=== PATIENT | female | born 1945 | race Caucasian/White ===

== ENCOUNTER 2019-02-06 21:34 | Emergency (ER) | payer MEDICARE, OTHER ==
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
[2019-02-07 03:31] VITALS: BP 140/90
== END 2019-02-07 00:45 | disposition home or self-care (01) ==
LOC: MW.ED 21:34
DX: S00.531A Contusion of lip, initial encounter (principal); K08.89 Other specified disorders of teeth and supporting structures; Y04.8XXA Assault by other bodily force, initial encounter
CPT/HCPCS: 70450; 70450-26; 72125; 72125-26; 73030-26-RT; 73030-RT; 99284-25

== ENCOUNTER 2019-06-07 16:01 | Observation (INO) | payer MEDICARE, OTHER ==
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
--- NOTE | 2019-06-07 17:14 | CR ---
INDICATION: Weak TECHNIQUE: Chest radiograph 1 view COMPARISON: None FINDINGS: Mediastinum: The mediastinum is normal in appearance. The heart silhouette is normal in size and morphology. Lung: Both lungs are unremarkable in appearance. No sign of pleural effusion seen. No pneumothorax is identified. IMPRESSION: 1. No acute cardiopulmonary disease is seen. Dictated by: Breezy Olvera MD @ 06/07/2019 17:13:05 (Electronically Signed)
[2019-06-07 17:37] LABS: CHLORIDE,CL 104 mmol/L (98-107); SODIUM,NA 138 mmol/L (136-145)
[2019-06-07] MEDS ORDERED: Ondansetron 4 MG Tab.DIS PO PRN (18:06)
[2019-06-07] MEDS ORDERED: Ketorolac 30 MG/ML SDV IV PRN (18:06)
[2019-06-07] MEDS ORDERED: Bisacodyl 5 MG Tab PO PRN (18:06)
[2019-06-07] MEDS ORDERED: Morphine 10 MG/ML Syringe IVPUSH PRN (18:06)
[2019-06-07] MEDS ORDERED: Temazepam 15 MG Cap PO PRN (18:06)
[2019-06-07] MEDS ORDERED: Ondansetron 4 MG/2 ML SDV IVPUSH PRN (18:06)
[2019-06-07] MEDS ORDERED: Acetaminophen 325 MG Tab PO PRN (18:06)
[2019-06-07] MEDS ORDERED: Ibuprofen 800 MG Tab PO PRN (18:06)
[2019-06-07] MEDS ORDERED: Docusate Sodium 100 MG Cap PO PRN (18:06)
[2019-06-07] MEDS ORDERED: Nitroglycerin 0.4 MG Tab.SL SL PRN (18:14)
[2019-06-07] MEDS ORDERED: Enoxaparin 40 MG/0.4 ML Syringe SUBCUT SCH (18:15)
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
[2019-06-07 19:23] LABS: HEMOGLOBIN A1C 5.2 % (4.5-6.2)
[2019-06-08 06:47] LABS: CHLORIDE,CL 112 mmol/L (98-107); SODIUM,NA 145 mmol/L (136-145)
--- NOTE | 2019-06-08 08:15 | PCM.DCSUM1 ---
<Richard Weston - Last Filed: 06/08/19 17:45> Discharge Summary - Hospital Course Free Text/Narrative:: 73 y/o female who presented to the ER complaining of generalized weakness and chest pain. EKG showing global ST depression. Compared to previous EKG in 2016 which showed the same. Initial troponin was negative. Admitted for chest pain, ACS rule out. Serial troponins were negative. Patient's lipase was trending down from 400 down to mid 300's. Denies any alcohol intake or history of pancreatitis. Echo was ordered which results were pending. MRCP was unremarkable. No pancreatic masses. Feeling better, denying chest pain. She will need to follow-up with cardiology and PCP. - Discharge Data Discharge Date: 06/08/19 Discharge Disposition: Home, Self-Care 01 Condition: Good - Patient Instructions Diet: Regular Diet as Tolerated, Drink 8-10+ Glasses/Day Activity: As Tolerated Notify Provider of: Fever, Increased Pain, Swelling and Redness, Nausea and/or Vomiting - Discharge Plan *PRESCRIPTION DRUG MONITORING PROGRAM REVIEWED*: Not Applicable *COPY OF PRESCRIPTION DRUG MONITORING REPORT IN PATIENT MIRTA: Not Applicable Home Medications: Home Meds . [No Known Home Meds] 02/06/19 [History] Patient Handouts: Fatigue, Nonspecific Chest Pain, [id number] Referrals: Deo Moncada MD [Ordering Only Provider] - 06/15/19 8:00 am - Discharge Summary/Plan Comment DC Time >30 min.: No - Patient Data Vitals - Most Recent: Last Vital Signs Temp 35.8 C 06/08/19 04:00 Pulse 45 L 06/08/19 04:00 Resp 12 06/08/19 04:00 BP 108/52 L 06/08/19 04:00 Pulse Ox 95 06/08/19 04:00 Weight - Most Recent: 60.328 kg I&O - Last 24 hours: Intake & Output 06/07/19 06/08/19 06/08/19 22:59 06:59 14:59 Intake Total 220 Output Total 400 Balance -180 Lab Results - Last 24 hrs: Laboratory Results - last 24 hr 06/07/19 06/07/19 06/07/19 Range/Units 16:28 16:28 16:28 WBC 7.07 (4.0-11.0) K/uL RBC 4.17 L (4.30-5.90) M/uL Hgb 13.5 (12.0-16.0) g/dL Hct 38.7 (36.0-46.0) % MCV 92.8 (80.0-98.0) fL MCH 32.4 H (27.0-32.0) pg MCHC 34.9 (31.0-37.0) g/dL RDW Std Deviation 43.6 (28.0-62.0) fl RDW Coeff of Alexandra 13 (11.0-15.0) % Plt Count 234 (150-400) K/uL MPV 9.60 (7.40-12.00) fL Neut % (Auto) 59.1 (48.0-80.0) % Lymph % (Auto) 31.4 (16.0-40.0) % [place] % (Auto) 6.6 (0.0-15.0) % Eos % (Auto) 2.5 (0.0-7.0) % Baso % (Auto) 0.4 (0.0-1.5) % Neut # (Auto) 4.2 (1.4-5.7) K/uL Lymph # (Auto) 2.2 (0.6-2.4) K/uL [place] # (Auto) 0.5 (0.0-0.8) K/uL Eos # (Auto) 0.2 (0.0-0.7) K/uL Baso # (Auto) 0.0 (0.0-0.1) K/uL Nucleated RBC % 0.0 /100WBC Nucleated RBCs # 0 K/uL Sodium 138 (136-145) mmol/L Potassium 3.9 (3.5-5.1) mmol/L Chloride 104 (98-107) mmol/L Carbon Dioxide 24.2 (21.0-32.0) mmol/L BUN 15 (7.0-18.0) mg/dL Creatinine 0.9 (0.6-1.0) mg/dL Est Cr Clr Drug Dosing 40.75 mL/min Estimated GFR (MDRD) > 60.0 ml/min Glucose 101 (74-106) mg/dL Hemoglobin A1c (4.5-6.2) % Calcium 9.6 (8.5-10.1) mg/dL Total Bilirubin 0.4 (0.2-1.0) mg/dL AST 20 (15-37) IU/L ALT 25 (14-63) IU/L Alkaline Phosphatase 70 (46-116) U/L Troponin I < 0.050 (0.000-0.056) ng/mL Total Protein 6.4 (6.4-8.2) g/dL Albumin 3.5 (3.4-5.0) g/dL Globulin 2.9 (2.6-4.0) g/dL Albumin/Globulin Ratio 1.2 (0.9-1.6) Triglycerides (0-200) mg/dL Cholesterol (50-200) mg/dL LDL Cholesterol, Calc (60-180) mg/dL VLDL Cholesterol (5-55) mg/dL HDL Cholesterol (40-60) mg/dL Cholesterol/HDL Ratio (3.3-6.0) Lipase 403 H (73-393) U/L TSH 3rd Generation 2.67 (0.36-3.74) uIU/mL Urine Color Urine Appearance Urine pH (5.0-8.0) Ur Specific [place] (1.001-1.035) Urine Protein (NEGATIVE) mg/dL Urine Glucose (UA) (NEGATIVE) mg/dL Urine Ketones (NEGATIVE) mg/dL Urine Occult Blood (NEGATIVE) Urine Nitrite (NEGATIVE) Urine Bilirubin (NEGATIVE) Urine Urobilinogen (<2.0) EU/dL Ur Leukocyte Esterase (NEGATIVE) 06/07/19 06/07/19 06/07/19 Range/Units 16:28 16:30 22:50 WBC (4.0-11.0) K/uL RBC (4.30-5.90) M/uL Hgb (12.0-16.0) g/dL Hct (36.0-46.0) % MCV (80.0-98.0) fL MCH (27.0-32.0) pg MCHC (31.0-37.0) g/dL RDW Std Deviation (28.0-62.0) fl RDW Coeff of Alexandra (11.0-15.0) % Plt Count (150-400) K/uL MPV (7.40-12.00) fL Neut % (Auto) (48.0-80.0) % Lymph % (Auto) (16.0-40.0) % [place] % (Auto) (0.0-15.0) % Eos % (Auto) (0.0-7.0) % Baso % (Auto) (0.0-1.5) % Neut # (Auto) (1.4-5.7) K/uL Lymph # (Auto) (0.6-2.4) K/uL [place] # (Auto) (0.0-0.8) K/uL Eos # (Auto) (0.0-0.7) K/uL Baso # (Auto) (0.0-0.1) K/uL Nucleated RBC % /100WBC Nucleated RBCs # K/uL Sodium (136-145) mmol/L Potassium (3.5-5.1) mmol/L Chloride (98-107) mmol/L Carbon Dioxide (21.0-32.0) mmol/L BUN (7.0-18.0) mg/dL Creatinine (0.6-1.0) mg/dL Est Cr Clr Drug Dosing mL/min Estimated GFR (MDRD) ml/min Glucose (74-106) mg/dL Hemoglobin A1c 5.2 (4.5-6.2) % Calcium (8.5-10.1) mg/dL Total Bilirubin (0.2-1.0) mg/dL AST (15-37) IU/L ALT (14-63) IU/L Alkaline Phosphatase (46-116) U/L Troponin I < 0.050 (0.000-0.056) ng/mL Total Protein (6.4-8.2) g/dL Albumin (3.4-5.0) g/dL Globulin (2.6-4.0) g/dL Albumin/Globulin Ratio (0.9-1.6) Triglycerides (0-200) mg/dL Cholesterol (50-200) mg/dL LDL Cholesterol, Calc (60-180) mg/dL VLDL Cholesterol (5-55) mg/dL HDL Cholesterol (40-60) mg/dL Cholesterol/HDL Ratio (3.3-6.0) Lipase (73-393) U/L TSH 3rd Generation (0.36-3.74) uIU/mL Urine Color YELLOW Urine Appearance CLEAR Urine pH 6.5 (5.0-8.0) Ur Specific [place] <= 1.005 (1.001-1.035) Urine Protein NEGATIVE (NEGATIVE) mg/dL Urine Glucose (UA) NEGATIVE (NEGATIVE) mg/dL Urine Ketones NEGATIVE (NEGATIVE) mg/dL Urine Occult Blood NEGATIVE (NEGATIVE) Urine Nitrite NEGATIVE (NEGATIVE) Urine Bilirubin NEGATIVE (NEGATIVE) Urine Urobilinogen 0.2 (<2.0) EU/dL Ur Leukocyte Esterase NEGATIVE (NEGATIVE) 06/08/19 06/08/19 06/08/19 Range/Units 05:50 05:50 05:50 WBC 4.57 (4.0-11.0) K/uL RBC 4.11 L (4.30-5.90) M/uL Hgb 13.2 (12.0-16.0) g/dL Hct 38.5 (36.0-46.0) % MCV 93.7 (80.0-98.0) fL MCH 32.1 H (27.0-32.0) pg MCHC 34.3 (31.0-37.0) g/dL RDW Std Deviation 44.9 (28.0-62.0) fl RDW Coeff of Alexandra 13 (11.0-15.0) % Plt Count 198 (150-400) K/uL MPV 9.90 (7.40-12.00) fL Neut % (Auto) (48.0-80.0) % Lymph % (Auto) (16.0-40.0) % [place] % (Auto) (0.0-15.0) % Eos % (Auto) (0.0-7.0) % Baso % (Auto) (0.0-1.5) % Neut # (Auto) (1.4-5.7) K/uL Lymph # (Auto) (0.6-2.4) K/uL [place] # (Auto) (0.0-0.8) K/uL Eos # (Auto) (0.0-0.7) K/uL Baso # (Auto) (0.0-0.1) K/uL Nucleated RBC % 0.0 /100WBC Nucleated RBCs # 0 K/uL Sodium 145 (136-145) mmol/L Potassium 3.9 (3.5-5.1) mmol/L Chloride 112 H (98-107) mmol/L Carbon Dioxide 23.8 (21.0-32.0) mmol/L BUN 16 (7.0-18.0) mg/dL Creatinine 0.9 (0.6-1.0) mg/dL Est Cr Clr Drug Dosing 50.56 mL/min Estimated GFR (MDRD) > 60.0 ml/min Glucose 89 (74-106) mg/dL Hemoglobin A1c (4.5-6.2) % Calcium 8.9 (8.5-10.1) mg/dL Total Bilirubin 0.4 (0.2-1.0) mg/dL AST 14 L (15-37) IU/L ALT 21 (14-63) IU/L Alkaline Phosphatase 60 (46-116) U/L Troponin I < 0.050 (0.000-0.056) ng/mL Total Protein 5.7 L (6.4-8.2) g/dL Albumin 3.1 L (3.4-5.0) g/dL Globulin 2.6 (2.6-4.0) g/dL Albumin/Globulin Ratio 1.2 (0.9-1.6) Triglycerides 109 (0-200) mg/dL Cholesterol 187 (50-200) mg/dL LDL Cholesterol, Calc 102 (60-180) mg/dL VLDL Cholesterol 21 (5-55) mg/dL HDL Cholesterol 63 H (40-60) mg/dL Cholesterol/HDL Ratio 3.0 L (3.3-6.0) Lipase 345 (73-393) U/L TSH 3rd Generation (0.36-3.74) uIU/mL Urine Color Urine Appearance Urine pH (5.0-8.0) Ur Specific [place] (1.001-1.035) Urine Protein (NEGATIVE) mg/dL Urine Glucose (UA) (NEGATIVE) mg/dL Urine Ketones (NEGATIVE) mg/dL Urine Occult Blood (NEGATIVE) Urine Nitrite (NEGATIVE) Urine Bilirubin (NEGATIVE) Urine Urobilinogen (<2.0) EU/dL Ur Leukocyte Esterase (NEGATIVE) Med Orders - Current: Current Medications Acetaminophen (Tylenol) 650 mg PO Q4H PRN PRN Reason: Pain (Mild 1-3)/fever Bisacodyl (Dulcolax) 5 mg PO DAILY PRN PRN Reason: Constipation Docusate Sodium (Colace) 100 mg PO BID PRN PRN Reason: Constipation Enoxaparin Sodium (Lovenox) 40 mg SUBCUT Q24H [facility] Last Admin: 06/07/19 18:30 Dose: 40 mg Ibuprofen (Motrin) 800 mg PO Q6H PRN PRN Reason: Pain (mild 1-3) Ketorolac Tromethamine (Toradol) 15 mg IV Q6H PRN PRN Reason: Pain (moderate 4-6) Morphine Sulfate (Morphine) 2 mg IVPUSH Q2H PRN PRN Reason: Pain (severe 7-10) Stop: 06/08/19 18:08 Nitroglycerin (Nitrostat) 0.4 mg SL Q5M PRN PRN Reason: Chest Pain Ondansetron HCl (Zofran Odt) 4 mg PO Q4H PRN PRN Reason: nausea, able to take PO Ondansetron HCl (Zofran) 4 mg IVPUSH Q4H PRN PRN Reason: Nausea Temazepam (Restoril) 15 mg PO BEDTIME PRN PRN Reason: Sleep <Case Rocha - Last Filed: 06/08/19 18:02> Discharge Summary - Hospital Course HPI Initial Comments: I have examined the patient independently of caregivers non medical, Dr. Jose MD. I have discussed the case with him. I have reviewed and agree with the examination and plan as outlined by him. Please see orders. MRCP normal. - Patient Data Vitals - Most Recent: Last Vital Signs Temp 35.8 C 06/08/19 16:00 Pulse 51 L 06/08/19 16:00 Resp 16 06/08/19 16:00 BP 112/58 L 06/08/19 16:00 Pulse Ox 98 06/08/19 16:00 I&O - Last 24 hours: Intake & Output 06/08/19 06/08/19 06/08/19 06:59 14:59 22:59 Intake Total 220 700 Output Total 400 500 Balance -180 200 Lab Results - Last 24 hrs: Laboratory Results - last 24 hr 06/07/19 06/07/19 06/07/19 Range/Units 16:28 16:28 22:50 WBC (4.0-11.0) K/uL RBC (4.30-5.90) M/uL Hgb (12.0-16.0) g/dL Hct (36.0-46.0) % MCV (80.0-98.0) fL MCH (27.0-32.0) pg MCHC (31.0-37.0) g/dL RDW Std Deviation (28.0-62.0) fl RDW Coeff of Alexandra (11.0-15.0) % Plt Count (150-400) K/uL MPV (7.40-12.00) fL Nucleated RBC % /100WBC Nucleated RBCs # K/uL Sodium (136-145) mmol/L Potassium (3.5-5.1) mmol/L Chloride (98-107) mmol/L Carbon Dioxide (21.0-32.0) mmol/L BUN (7.0-18.0) mg/dL Creatinine (0.6-1.0) mg/dL Est Cr Clr Drug Dosing mL/min Estimated GFR (MDRD) ml/min Glucose (74-106) mg/dL Hemoglobin A1c 5.2 (4.5-6.2) % Calcium (8.5-10.1) mg/dL Total Bilirubin (0.2-1.0) mg/dL AST (15-37) IU/L ALT (14-63) IU/L Alkaline Phosphatase (46-116) U/L Troponin I < 0.050 (0.000-0.056) ng/mL Total Protein (6.4-8.2) g/dL Albumin (3.4-5.0) g/dL Globulin (2.6-4.0) g/dL Albumin/Globulin Ratio (0.9-1.6) Triglycerides (0-200) mg/dL Cholesterol (50-200) mg/dL LDL Cholesterol, Calc (60-180) mg/dL VLDL Cholesterol (5-55) mg/dL HDL Cholesterol (40-60) mg/dL Cholesterol/HDL Ratio (3.3-6.0) Lipase (73-393) U/L Vitamin B12 (193-986) pg/mL Folate (8.60-58.90) ng/mL TSH 3rd Generation 2.67 (0.36-3.74) uIU/mL 06/08/19 06/08/19 06/08/19 Range/Units 05:50 05:50 05:50 WBC 4.57 (4.0-11.0) K/uL RBC 4.11 L (4.30-5.90) M/uL Hgb 13.2 (12.0-16.0) g/dL Hct 38.5 (36.0-46.0) % MCV 93.7 (80.0-98.0) fL MCH 32.1 H (27.0-32.0) pg MCHC 34.3 (31.0-37.0) g/dL RDW Std Deviation 44.9 (28.0-62.0) fl RDW Coeff of Alexandra 13 (11.0-15.0) % Plt Count 198 (150-400) K/uL MPV 9.90 (7.40-12.00) fL Nucleated RBC % 0.0 /100WBC Nucleated RBCs # 0 K/uL Sodium 145 (136-145) mmol/L Potassium 3.9 (3.5-5.1) mmol/L Chloride 112 H (98-107) mmol/L Carbon Dioxide 23.8 (21.0-32.0) mmol/L BUN 16 (7.0-18.0) mg/dL Creatinine 0.9 (0.6-1.0) mg/dL Est Cr Clr Drug Dosing 50.56 mL/min Estimated GFR (MDRD) > 60.0 ml/min Glucose 89 (74-106) mg/dL Hemoglobin A1c (4.5-6.2) % Calcium 8.9 (8.5-10.1) mg/dL Total Bilirubin 0.4 (0.2-1.0) mg/dL AST 14 L (15-37) IU/L ALT 21 (14-63) IU/L Alkaline Phosphatase 60 (46-116) U/L Troponin I < 0.050 (0.000-0.056) ng/mL Total Protein 5.7 L (6.4-8.2) g/dL Albumin 3.1 L (3.4-5.0) g/dL Globulin 2.6 (2.6-4.0) g/dL Albumin/Globulin Ratio 1.2 (0.9-1.6) Triglycerides 109 (0-200) mg/dL Cholesterol 187 (50-200) mg/dL LDL Cholesterol, Calc 102 (60-180) mg/dL VLDL Cholesterol 21 (5-55) mg/dL HDL Cholesterol 63 H (40-60) mg/dL Cholesterol/HDL Ratio 3.0 L (3.3-6.0) Lipase 345 (73-393) U/L Vitamin B12 (193-986) pg/mL Folate (8.60-58.90) ng/mL TSH 3rd Generation (0.36-3.74) uIU/mL 06/08/19 Range/Units 05:50 WBC (4.0-11.0) K/uL RBC (4.30-5.90) M/uL Hgb (12.0-16.0) g/dL Hct (36.0-46.0) % MCV (80.0-98.0) fL MCH (27.0-32.0) pg MCHC (31.0-37.0) g/dL RDW Std Deviation (28.0-62.0) fl RDW Coeff of Alexandra (11.0-15.0) % Plt Count (150-400) K/uL MPV (7.40-12.00) fL Nucleated RBC % /100WBC Nucleated RBCs # K/uL Sodium (136-145) mmol/L Potassium (3.5-5.1) mmol/L Chloride (98-107) mmol/L Carbon Dioxide (21.0-32.0) mmol/L BUN (7.0-18.0) mg/dL Creatinine (0.6-1.0) mg/dL Est Cr Clr Drug Dosing mL/min Estimated GFR (MDRD) ml/min Glucose (74-106) mg/dL Hemoglobin A1c (4.5-6.2) % Calcium (8.5-10.1) mg/dL Total Bilirubin (0.2-1.0) mg/dL AST (15-37) IU/L ALT (14-63) IU/L Alkaline Phosphatase (46-116) U/L Troponin I (0.000-0.056) ng/mL Total Protein (6.4-8.2) g/dL Albumin (3.4-5.0) g/dL Globulin (2.6-4.0) g/dL Albumin/Globulin Ratio (0.9-1.6) Triglycerides (0-200) mg/dL Cholesterol (50-200) mg/dL LDL Cholesterol, Calc (60-180) mg/dL VLDL Cholesterol (5-55) mg/dL HDL Cholesterol (40-60) mg/dL Cholesterol/HDL Ratio (3.3-6.0) Lipase (73-393) U/L Vitamin B12 1496 H (193-986) pg/mL Folate 10.40 (8.60-58.90) ng/mL TSH 3rd Generation (0.36-3.74) uIU/mL Med Orders - Current: Current Medications Acetaminophen (Tylenol) 650 mg PO Q4H PRN PRN Reason: Pain (Mild 1-3)/fever Bisacodyl (Dulcolax) 5 mg PO DAILY PRN PRN Reason: Constipation Docusate Sodium (Colace) 100 mg PO BID PRN PRN Reason: Constipation Enoxaparin Sodium (Lovenox) 40 mg SUBCUT Q24H [facility] Last Admin: 06/07/19 18:30 Dose: 40 mg Ibuprofen (Motrin) 800 mg PO Q6H PRN PRN Reason: Pain (mild 1-3) Ketorolac Tromethamine (Toradol) 15 mg IV Q6H PRN PRN Reason: Pain (moderate 4-6) Morphine Sulfate (Morphine) 2 mg IVPUSH Q2H PRN PRN Reason: Pain (severe 7-10) Stop: 06/08/19 18:08 Nitroglycerin (Nitrostat) 0.4 mg SL Q5M PRN PRN Reason: Chest Pain Ondansetron HCl (Zofran Odt) 4 mg PO Q4H PRN PRN Reason: nausea, able to take PO Ondansetron HCl (Zofran) 4 mg IVPUSH Q4H PRN PRN Reason: Nausea Temazepam (Restoril) 15 mg PO BEDTIME PRN PRN Reason: Sleep Discontinued Medications Gadobenate Dimeglumine (Multihance) 11 ml IVPUSH ONETIME STA Stop: 06/08/19 14:11 Last Admin: 06/08/19 14:12 Dose: 11 ml Lorazepam (Ativan) 1 mg IVPUSH ONETIME ONE Stop: 06/08/19 13:39
[2019-06-08] MEDS ORDERED: LORazepam 2 MG/ML SDV IVPUSH ONE (13:38)
[2019-06-08] MEDS ORDERED: Gadobenate Dimeglumine 529 MG/ML 20 ML SDV IVPUSH STA (14:10)
--- NOTE | 2019-06-08 15:18 | MR ---
INDICATION: Pancreatitis. TECHNIQUE: Abdominal MRI with T1 in- and out of phase, T2, diffusion weighted, and progressively delayed post-contrast images. Intravenous gadolinium administered. Heavily T2 weighted 2D and 3D MRCP images also performed. FINDINGS: No fatty infiltration of the liver. 5 mm probable cyst in segment 7 of the liver. No other focal abnormalities identified in the visualized portions of the liver, spleen, pancreas, adrenal glands, and kidneys. No hydronephrosis. No intra or extrahepatic bile duct dilation with the common bile duct measuring 4 mm. No filling defects in the biliary system. Normal size of the main pancreatic duct. IMPRESSION: No bile duct dilation. No choledocholithiasis. Normal size of the main pancreatic duct. Dictated by Subhash Altamirano MD @ 06/08/2019 3:17:57 PM Dictated by: Subhash Altamirano MD @ 06/08/2019 15:18:05 (Electronically Signed)
[2019-06-08 17:04] VITALS: BP 112/58
--- NOTE | 2019-06-12 16:52 | ECHO ---
The echocardiogram report can be seen in this patient's EMR (Electronic Medical Record) in the Reports section. The echocardiogram report has also been scanned into PACS and can be seen there as well. RAHEEM
== END 2019-06-08 17:25 | disposition home or self-care (01) ==
LOC: MW.ED 16:01 → MW.MS 18:11
PROVIDERS: ADMIT Internal Medicine; ATTEND Internal Medicine
DX: R07.89 Other chest pain (principal); R53.1 Weakness; R74.8 Abnormal levels of other serum enzymes; Z82.49 Family history of ischemic heart disease and other diseases of the circulatory system
CPT/HCPCS: 36415; 71045; 74183; 80053; 80061; 81003; 82607; 82746; 83036; 83690; 84443; 84484; 85025; 85027; 93005; 93306; 96372; 96374; 99285; A9577; G0378; J1650; J2060

== ENCOUNTER 2019-12-21 19:38 | Emergency (ER) | payer MEDICARE, OTHER ==
[2019-12-21] MEDS ORDERED: Sulfamethoxazole/Trimethoprim 800-160 MG Tab PO ONE (20:26)
[2019-12-21] MEDS ORDERED: Phenazopyridine 200 MG Tab PO ONE (20:27)
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
[2019-12-21 20:41] VITALS: BP 130/60; PULSE 62
== END 2019-12-21 20:58 | disposition home or self-care (01) ==
LOC: MW.ED 19:38
DX: B34.9 Viral infection, unspecified (principal); R30.0 Dysuria
CPT/HCPCS: 99283; A9270

== ENCOUNTER 2020-05-29 22:46 | Emergency (ER) | payer MEDICARE, OTHER ==
[2020-05-29] MEDS ORDERED: Ibuprofen 600 MG Tab PO ONE (23:08)
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
--- NOTE | 2020-05-29 23:44 | CR ---
Indication: Injury Technique: Three views of the left 2nd digit Comparison: None available Findings: Bones: A nondisplaced fracture at the tuft of the 2nd distal phalanx. No dislocation. Ovoid lucencies at the base of the 1st metacarpal, probably degenerative subcortical cysts. Joint spaces: Mild degenerative changes at the 1st carpometacarpal joint and narrowing of the lateral mid carpal joint space. Soft tissues: Soft tissue swelling in the distal 2nd digit. A tiny calcification dorsal to the distal aspect of the 2nd proximal phalanx, nonspecific. Impression: A fracture of the 2nd distal phalanx. Dictated by Anil Muir MD @ 05/29/2020 11:42:48 PM Dictated by: Anil Muir MD @ 05/29/2020 23:43:56 (Electronically Signed)
[2020-05-30 03:10] VITALS: BP 149/56; PULSE 45
== END 2020-05-30 00:16 | disposition home or self-care (01) ==
LOC: MW.ED 22:46
DX: S62.661A Nondisplaced fracture of distal phalanx of left index finger, initial encounter for closed fracture (principal); W23.0XXA Caught, crushed, jammed, or pinched between moving objects, initial encounter
CPT/HCPCS: 73140; 99283; A9270

== ENCOUNTER 2022-01-17 19:52 | Emergency (ER) | payer MEDICARE, OTHER ==
[2022-01-17] MEDS ORDERED: ClonazePAM 0.5 MG Tab PO ONE ×2 (20:35→20:36)
[2022-01-17] MEDS ORDERED: LORazepam 0.5 MG Tab PO ONE (21:28)
[2022-01-17 22:19] VITALS: BP 131/68; PULSE 84
== END 2022-01-17 21:36 | disposition home or self-care (01) ==
LOC: MW.ED 19:52
DX: F41.9 Anxiety disorder, unspecified (principal); Z76.0 Encounter for issue of repeat prescription
CPT/HCPCS: 99283; A9270; 99281

== ENCOUNTER 2023-04-03 18:06 | Emergency (ER) | payer MEDICARE, OTHER ==
[2023-04-03 21:01] VITALS: BP 125/78; PULSE 78
== END 2023-04-03 21:01 | disposition home or self-care (01) ==
LOC: MW.ED 18:06
DX: S93.401A Sprain of unspecified ligament of right ankle, initial encounter (principal); X50.1XXA Overexertion from prolonged static or awkward postures, initial encounter
CPT/HCPCS: 73590-26-RT; 73590-RT; 73610-26-RT; 73610-RT; 99283

== ENCOUNTER 2023-06-30 22:58 | Emergency (ER) | payer MEDICARE, OTHER ==
[2023-06-30] MEDS ORDERED: Ondansetron 4 MG/2 ML SDV IVPUSH ONE (23:37)
[2023-06-30] MEDS ORDERED: Sodium Chloride 0.9% 1,000 ML IV ONE (23:37)
[2023-06-30 23:54] LABS: BASOPHILS PERCENT AUTO 0.2 % (0.0-1.5); EOSINOPHILS PERCENT AUTO 0.5 % (0.0-7.0); HEMATOCRIT 34.6 % (36.0-46.0); HEMOGLOBIN 11.8 g/dL (12.0-16.0); LYMPHOCYTES ABSOLUTE AUTO 0.6 K/uL (0.6-2.4); LYMPHOCYTES PERCENT AUTO 9.2 % (16.0-40.0); MEAN CORPUSCULAR HEMOGLOBIN 31.4 pg (27.0-32.0); MEAN CORPUSCULAR HGB CONC 34.1 g/dL (31.0-37.0); MONOCYTES ABSOLUTE AUTO 0.6 K/uL (0.0-0.8); MONOCYTES PERCENT AUTO 9.5 % (0.0-15.0); NEUTROPHILS PERCENT AUTO 80.6 % (48.0-80.0); NRBC ABSOLUTE 0 K/uL; PLATELET COUNT,PLT 205 K/uL (150-400); RED BLOOD CELL COUNT 3.76 M/uL (4.30-5.90)
[2023-07-01 00:26] LABS: A/G RATIO 1.2 (0.9-1.6); ALBUMIN 3.6 g/dL (3.4-5.0); BILIRUBIN TOTAL 0.3 mg/dL (0.2-1.0); CALCIUM 8.4 mg/dL (8.5-10.1); CARBON DIOXIDE,CO2 23.5 mmol/L (21.0-32.0); CREATININE 1.1 mg/dL (0.6-1.0); EST CRCL DRUG DOSING (CG) 31.29 mL/min; MAGNESIUM 1.6 mg/dL (1.8-2.4); POTASSIUM,K 3.8 mmol/L (3.5-5.1); PROTEIN TOTAL,TP 6.7 g/dL (6.4-8.2)
[2023-07-01] MEDS ORDERED: Acetaminophen 500 MG Tab PO ONE (00:38)
[2023-07-01 00:53] LABS: APPEARANCE,URINE CLEAR; BILIRUBIN,URINE NEGATIVE (NEGATIVE); COLOR,URINE YELLOW; GLUCOSE,URINE NEGATIVE (NEGATIVE); KETONES,URINE NEGATIVE (NEGATIVE); LEUKOCYTE ESTERASE,URINE NEGATIVE (NEGATIVE); NITRITE,URINE NEGATIVE (NEGATIVE); OCCULT BLOOD,URINE NEGATIVE (NEGATIVE); PROTEIN,URINE NEGATIVE (NEGATIVE); UROBILINOGEN,URINE 0.2 EU/dL (<2.0)
[2023-07-01 06:12] VITALS: BP 100/60; PULSE 66
== END 2023-07-01 06:10 | disposition home or self-care (01) ==
LOC: MW.ED 22:58
DX: U07.1 COVID-19 (principal); E86.0 Dehydration; R25.1 Tremor, unspecified
CPT/HCPCS: 36415; 80053; 81003; 83735; 84484; 85025; 96361; 96374; 96375; 99284; 99284-25; A9270-GY; J2405; J3360; J7030; U0002

== ENCOUNTER 2023-07-02 11:10 | Inpatient (IN) | payer MEDICARE, OTHER ==
[2023-07-02] MEDS ORDERED: Ondansetron 4 MG Tab.DIS PO ONE (11:37)
[2023-07-02 12:00] LABS: HEMOGLOBIN 11.3 g/dL (12.0-16.0); LYMPHOCYTES ABSOLUTE AUTO 0.5 K/uL (0.6-2.4); LYMPHOCYTES PERCENT AUTO 14.9 % (16.0-40.0); MEAN CORPUSCULAR HGB CONC 34.2 g/dL (31.0-37.0); MEAN CORPUSCULAR VOLUME 90.4 fL (80.0-98.0); MONOCYTES ABSOLUTE AUTO 0.3 K/uL (0.0-0.8); MONOCYTES PERCENT AUTO 9.2 % (0.0-15.0); NEUTROPHILS ABSOLUTE AUTO 2.6 K/uL (1.4-5.7); NEUTROPHILS PERCENT AUTO 75.9 % (48.0-80.0); NRBC ABSOLUTE 0 K/uL; PLATELET COUNT,PLT 129 K/uL (150-400); RED BLOOD CELL COUNT 3.65 M/uL (4.30-5.90); WHITE BLOOD CELL COUNT,WBC 3.36 K/uL (4.0-11.0)
[2023-07-02 12:27] LABS: A/G RATIO 1.2 (0.9-1.6); ALBUMIN 3.5 g/dL (3.4-5.0); BILIRUBIN TOTAL 0.5 mg/dL (0.2-1.0); CALCIUM 7.7 mg/dL (8.5-10.1); CARBON DIOXIDE,CO2 19.1 mmol/L (21.0-32.0); EST CRCL DRUG DOSING (CG) 34.42 mL/min; POTASSIUM,K 3.7 mmol/L (3.5-5.1); PROTEIN TOTAL,TP 6.3 g/dL (6.4-8.2)
[2023-07-02] MEDS ORDERED: Sodium Chloride 0.9% 1,000 ML IV ONE (12:40)
[2023-07-02] MEDS ORDERED: Sodium Chloride 0.9% 1,000 ML IV SCH (15:50)
[2023-07-02] MEDS ORDERED: Albuterol/Ipratropium 3.0-0.5 MG/3 ML Neb Soln NEB PRN (16:20)
[2023-07-02] MEDS ORDERED: REMDESIVIR 200 MG in Sodium Chloride 0.9% 250 ML IV ONE ×2 (17:00→18:30)
[2023-07-02 17:04] LABS: CALCIUM 7.7 mg/dL (8.5-10.1); CARBON DIOXIDE,CO2 20.9 mmol/L (21.0-32.0); CREATININE 0.9 mg/dL (0.6-1.0); EST CRCL DRUG DOSING (CG) 38.25 mL/min; POTASSIUM,K 3.8 mmol/L (3.5-5.1)
[2023-07-02] MEDS: cefTRIAXone 1 GM in Sodium Chloride 0.9% 50 ML IV SCH (17:05)
[2023-07-02] MEDS: Enoxaparin 40 MG/0.4 ML Syringe SUBCUT SCH (17:05)
[2023-07-02] MEDS: Azithromycin 500 MG in Sodium Chloride 0.9% 250 ML IV SCH (17:37)
[2023-07-02] MEDS ORDERED: Ondansetron 4 MG/2 ML SDV IVPUSH PRN (18:01)
[2023-07-02] MEDS: ClonazePAM 0.5 MG Tab PO PRN (22:04)
[2023-07-03 06:26] LABS: BASOPHILS PERCENT AUTO 0.1 % (0.0-1.5); HEMATOCRIT 34.3 % (36.0-46.0); HEMOGLOBIN 11.7 g/dL (12.0-16.0); LYMPHOCYTES ABSOLUTE AUTO 1.7 K/uL (0.6-2.4); LYMPHOCYTES PERCENT AUTO 23.4 % (16.0-40.0); MEAN CORPUSCULAR HEMOGLOBIN 30.9 pg (27.0-32.0); MEAN CORPUSCULAR HGB CONC 34.1 g/dL (31.0-37.0); MEAN CORPUSCULAR VOLUME 90.5 fL (80.0-98.0); MONOCYTES ABSOLUTE AUTO 0.4 K/uL (0.0-0.8); MONOCYTES PERCENT AUTO 6.2 % (0.0-15.0); NEUTROPHILS PERCENT AUTO 70.3 % (48.0-80.0); NRBC ABSOLUTE 0 K/uL; PLATELET COUNT,PLT 146 K/uL (150-400); RED BLOOD CELL COUNT 3.79 M/uL (4.30-5.90); WHITE BLOOD CELL COUNT,WBC 7.06 K/uL (4.0-11.0)
[2023-07-03 06:49] LABS: A/G RATIO 1.1 (0.9-1.6); BILIRUBIN TOTAL 0.2 mg/dL (0.2-1.0); CALCIUM 7.5 mg/dL (8.5-10.1); CARBON DIOXIDE,CO2 20.1 mmol/L (21.0-32.0); EST CRCL DRUG DOSING (CG) 34.42 mL/min; POTASSIUM,K 3.8 mmol/L (3.5-5.1); PROTEIN TOTAL,TP 5.8 g/dL (6.4-8.2)
[2023-07-03] MEDS: Polyethylene Glycol 3350 Powder 17 GM Packet PO SCH (08:28)
[2023-07-03] MEDS: Ondansetron 4 MG/2 ML SDV IVPUSH PRN (11:46)
[2023-07-03] MEDS: Acetaminophen 325 MG Tab PO PRN ×2 (11:50→22:50)
[2023-07-03] MEDS: cefTRIAXone 1 GM in Sodium Chloride 0.9% 50 ML IV SCH (16:29)
[2023-07-03] MEDS: Enoxaparin 40 MG/0.4 ML Syringe SUBCUT SCH (16:35)
[2023-07-03] MEDS ORDERED: REMDESIVIR 100 MG in Sodium Chloride 0.9% 100 ML IV SCH (17:00)
[2023-07-03] MEDS: Azithromycin 500 MG in Sodium Chloride 0.9% 250 ML IV SCH (17:29)
[2023-07-03] MEDS: REMDESIVIR 100 MG in Sodium Chloride 0.9% 100 ML IV SCH (19:59)
[2023-07-04 08:05] LABS: BASOPHILS PERCENT AUTO 0.3 % (0.0-1.5); EOSINOPHILS PERCENT AUTO 0.3 % (0.0-7.0); HEMATOCRIT 33.5 % (36.0-46.0); HEMOGLOBIN 11.3 g/dL (12.0-16.0); LYMPHOCYTES ABSOLUTE AUTO 1.4 K/uL (0.6-2.4); LYMPHOCYTES PERCENT AUTO 40.3 % (16.0-40.0); MEAN CORPUSCULAR HEMOGLOBIN 30.7 pg (27.0-32.0); MEAN CORPUSCULAR HGB CONC 33.7 g/dL (31.0-37.0); MONOCYTES ABSOLUTE AUTO 0.4 K/uL (0.0-0.8); MONOCYTES PERCENT AUTO 11.4 % (0.0-15.0); NEUTROPHILS ABSOLUTE AUTO 1.7 K/uL (1.4-5.7); NEUTROPHILS PERCENT AUTO 47.7 % (48.0-80.0); NRBC ABSOLUTE 0 K/uL; PLATELET COUNT,PLT 152 K/uL (150-400); RED BLOOD CELL COUNT 3.68 M/uL (4.30-5.90); WHITE BLOOD CELL COUNT,WBC 3.52 K/uL (4.0-11.0)
[2023-07-04 08:23] LABS: A/G RATIO 0.9 (0.9-1.6); ALBUMIN 2.5 g/dL (3.4-5.0); BILIRUBIN TOTAL 0.2 mg/dL (0.2-1.0); CALCIUM 7.6 mg/dL (8.5-10.1); CARBON DIOXIDE,CO2 24.5 mmol/L (21.0-32.0); CREATININE 0.8 mg/dL (0.6-1.0); EST CRCL DRUG DOSING (CG) 43.03 mL/min; POTASSIUM,K 3.8 mmol/L (3.5-5.1); PROTEIN TOTAL,TP 5.2 g/dL (6.4-8.2)
[2023-07-04] MEDS: Polyethylene Glycol 3350 Powder 17 GM Packet PO SCH (10:14)
[2023-07-04] MEDS: cefTRIAXone 1 GM in Sodium Chloride 0.9% 50 ML IV SCH (17:06)
[2023-07-04] MEDS: Azithromycin 500 MG in Sodium Chloride 0.9% 250 ML IV SCH (19:16)
[2023-07-04] MEDS: REMDESIVIR 100 MG in Sodium Chloride 0.9% 100 ML IV SCH (20:28)
[2023-07-04] MEDS: Apixaban 5 MG Tab PO SCH (20:50)
[2023-07-04] MEDS: Acetaminophen 325 MG Tab PO PRN (20:50)
[2023-07-05 06:11] LABS: BASOPHILS PERCENT AUTO 0.3 % (0.0-1.5); HEMATOCRIT 32.5 % (36.0-46.0); HEMOGLOBIN 10.9 g/dL (12.0-16.0); LYMPHOCYTES ABSOLUTE AUTO 1.4 K/uL (0.6-2.4); LYMPHOCYTES PERCENT AUTO 45.4 % (16.0-40.0); MEAN CORPUSCULAR HEMOGLOBIN 30.7 pg (27.0-32.0); MEAN CORPUSCULAR HGB CONC 33.5 g/dL (31.0-37.0); MEAN CORPUSCULAR VOLUME 91.5 fL (80.0-98.0); MONOCYTES ABSOLUTE AUTO 0.5 K/uL (0.0-0.8); MONOCYTES PERCENT AUTO 14.7 % (0.0-15.0); NEUTROPHILS ABSOLUTE AUTO 1.2 K/uL (1.4-5.7); NEUTROPHILS PERCENT AUTO 38.6 % (48.0-80.0); NRBC ABSOLUTE 0 K/uL; PLATELET COUNT,PLT 152 K/uL (150-400); RED BLOOD CELL COUNT 3.55 M/uL (4.30-5.90); WHITE BLOOD CELL COUNT,WBC 3.06 K/uL (4.0-11.0)
[2023-07-05 06:47] LABS: ALBUMIN 2.6 g/dL (3.4-5.0); BILIRUBIN TOTAL 0.2 mg/dL (0.2-1.0); CALCIUM 7.9 mg/dL (8.5-10.1); CREATININE 0.7 mg/dL (0.6-1.0); EST CRCL DRUG DOSING (CG) 49.18 mL/min; POTASSIUM,K 3.8 mmol/L (3.5-5.1); PROTEIN TOTAL,TP 5.2 g/dL (6.4-8.2)
[2023-07-05] MEDS: Polyethylene Glycol 3350 Powder 17 GM Packet PO SCH (08:18)
[2023-07-05] MEDS: Apixaban 5 MG Tab PO SCH ×2 (08:18→21:04)
[2023-07-05] MEDS: Pantoprazole 40 MG in Sodium Chloride 0.9% 10 ML IVPUSH SCH (12:00)
[2023-07-05] MEDS: cefTRIAXone 1 GM in Sodium Chloride 0.9% 50 ML IV SCH ×2 (15:16→16:43)
[2023-07-05] MEDS: Azithromycin 500 MG in Sodium Chloride 0.9% 250 ML IV SCH (16:44)
[2023-07-05] MEDS: REMDESIVIR 100 MG in Sodium Chloride 0.9% 100 ML IV SCH (18:19)
[2023-07-05] MEDS: ClonazePAM 0.5 MG Tab PO PRN (20:06)
[2023-07-06 06:03] LABS: EOSINOPHILS PERCENT AUTO 0.2 % (0.0-7.0); HEMATOCRIT 33.9 % (36.0-46.0); HEMOGLOBIN 11.6 g/dL (12.0-16.0); LYMPHOCYTES ABSOLUTE AUTO 1.2 K/uL (0.6-2.4); LYMPHOCYTES PERCENT AUTO 28.5 % (16.0-40.0); MEAN CORPUSCULAR HEMOGLOBIN 30.6 pg (27.0-32.0); MEAN CORPUSCULAR HGB CONC 34.2 g/dL (31.0-37.0); MEAN CORPUSCULAR VOLUME 89.4 fL (80.0-98.0); MONOCYTES ABSOLUTE AUTO 0.4 K/uL (0.0-0.8); NEUTROPHILS ABSOLUTE AUTO 2.6 K/uL (1.4-5.7); NEUTROPHILS PERCENT AUTO 61.3 % (48.0-80.0); NRBC ABSOLUTE 0 K/uL; PLATELET COUNT,PLT 182 K/uL (150-400); RED BLOOD CELL COUNT 3.79 M/uL (4.30-5.90); WHITE BLOOD CELL COUNT,WBC 4.21 K/uL (4.0-11.0)
[2023-07-06 06:47] LABS: ALBUMIN 2.7 g/dL (3.4-5.0); BILIRUBIN TOTAL 0.3 mg/dL (0.2-1.0); CALCIUM 8.2 mg/dL (8.5-10.1); CREATININE 0.7 mg/dL (0.6-1.0); EST CRCL DRUG DOSING (CG) 49.18 mL/min; POTASSIUM,K 3.7 mmol/L (3.5-5.1); PROTEIN TOTAL,TP 5.3 g/dL (6.4-8.2)
[2023-07-06] MEDS: Pantoprazole 40 MG in Sodium Chloride 0.9% 10 ML IVPUSH SCH (08:15)
[2023-07-06] MEDS: Apixaban 5 MG Tab PO SCH ×2 (08:15→20:27)
[2023-07-06] MEDS: Polyethylene Glycol 3350 Powder 17 GM Packet PO SCH (08:25)
[2023-07-06] MEDS: cefTRIAXone 1 GM in Sodium Chloride 0.9% 50 ML IV SCH (16:22)
[2023-07-06] MEDS: Azithromycin 500 MG in Sodium Chloride 0.9% 250 ML IV SCH (17:00)
[2023-07-06] MEDS: Ondansetron 4 MG/2 ML SDV IVPUSH PRN (18:39)
[2023-07-06] MEDS: REMDESIVIR 100 MG in Sodium Chloride 0.9% 100 ML IV SCH (18:42)
[2023-07-06] MEDS: ClonazePAM 0.5 MG Tab PO PRN (20:27)
[2023-07-07 06:23] LABS: BASOPHILS PERCENT AUTO 0.2 % (0.0-1.5); EOSINOPHILS PERCENT AUTO 0.2 % (0.0-7.0); HEMATOCRIT 34.4 % (36.0-46.0); LYMPHOCYTES ABSOLUTE AUTO 1.5 K/uL (0.6-2.4); LYMPHOCYTES PERCENT AUTO 28.3 % (16.0-40.0); MEAN CORPUSCULAR HGB CONC 34.9 g/dL (31.0-37.0); MEAN CORPUSCULAR VOLUME 88.9 fL (80.0-98.0); MONOCYTES ABSOLUTE AUTO 0.6 K/uL (0.0-0.8); MONOCYTES PERCENT AUTO 11.9 % (0.0-15.0); NEUTROPHILS PERCENT AUTO 59.4 % (48.0-80.0); NRBC ABSOLUTE 0 K/uL; PLATELET COUNT,PLT 202 K/uL (150-400); RED BLOOD CELL COUNT 3.87 M/uL (4.30-5.90); WHITE BLOOD CELL COUNT,WBC 5.12 K/uL (4.0-11.0)
[2023-07-07 06:48] LABS: ALBUMIN 2.6 g/dL (3.4-5.0); BILIRUBIN TOTAL 0.3 mg/dL (0.2-1.0); CALCIUM 8.2 mg/dL (8.5-10.1); CARBON DIOXIDE,CO2 25.3 mmol/L (21.0-32.0); CREATININE 0.8 mg/dL (0.6-1.0); EST CRCL DRUG DOSING (CG) 43.03 mL/min; POTASSIUM,K 3.6 mmol/L (3.5-5.1); PROTEIN TOTAL,TP 5.1 g/dL (6.4-8.2)
[2023-07-07] MEDS: Apixaban 5 MG Tab PO SCH ×2 (08:30→20:41)
[2023-07-07] MEDS: Pantoprazole 40 MG in Sodium Chloride 0.9% 10 ML IVPUSH SCH (08:30)
[2023-07-07] MEDS: Polyethylene Glycol 3350 Powder 17 GM Packet PO SCH (08:52)
[2023-07-07] MEDS: Acetaminophen 325 MG Tab PO PRN (20:43)
[2023-07-07] MEDS: ClonazePAM 0.5 MG Tab PO PRN (23:53)
[2023-07-08 06:19] LABS: BASOPHILS PERCENT AUTO 0.2 % (0.0-1.5); EOSINOPHILS ABSOLUTE AUTO 0.1 K/uL (0.0-0.7); EOSINOPHILS PERCENT AUTO 0.8 % (0.0-7.0); HEMOGLOBIN 11.7 g/dL (12.0-16.0); LYMPHOCYTES ABSOLUTE AUTO 1.9 K/uL (0.6-2.4); LYMPHOCYTES PERCENT AUTO 31.3 % (16.0-40.0); MEAN CORPUSCULAR HEMOGLOBIN 30.9 pg (27.0-32.0); MEAN CORPUSCULAR HGB CONC 34.4 g/dL (31.0-37.0); MEAN CORPUSCULAR VOLUME 89.7 fL (80.0-98.0); MONOCYTES ABSOLUTE AUTO 0.7 K/uL (0.0-0.8); MONOCYTES PERCENT AUTO 11.9 % (0.0-15.0); NEUTROPHILS ABSOLUTE AUTO 3.3 K/uL (1.4-5.7); NEUTROPHILS PERCENT AUTO 55.8 % (48.0-80.0); NRBC ABSOLUTE 0 K/uL; PLATELET COUNT,PLT 209 K/uL (150-400); RED BLOOD CELL COUNT 3.79 M/uL (4.30-5.90); WHITE BLOOD CELL COUNT,WBC 5.95 K/uL (4.0-11.0)
[2023-07-08 06:30] LABS: A/G RATIO 0.9 (0.9-1.6); ALBUMIN 2.5 g/dL (3.4-5.0); BILIRUBIN TOTAL 0.5 mg/dL (0.2-1.0); CALCIUM 7.6 mg/dL (8.5-10.1); CARBON DIOXIDE,CO2 24.4 mmol/L (21.0-32.0); CREATININE 0.6 mg/dL (0.6-1.0); EST CRCL DRUG DOSING (CG) 57.37 mL/min; POTASSIUM,K 4.2 mmol/L (3.5-5.1); PROTEIN TOTAL,TP 5.2 g/dL (6.4-8.2)
[2023-07-08] MEDS: Pantoprazole 40 MG in Sodium Chloride 0.9% 10 ML IVPUSH SCH (08:41)
[2023-07-08] MEDS: Polyethylene Glycol 3350 Powder 17 GM Packet PO SCH (08:42)
[2023-07-08] MEDS: Apixaban 5 MG Tab PO SCH (09:32)
[2023-07-08 12:27] VITALS: BP 127/63; PULSE 73
== END 2023-07-08 12:10 | disposition home or self-care (01) | DRG 178 ==
LOC: MW.ED 11:10 → MW.MS 12:58
PROVIDERS: ADMIT Internal Medicine; ATTEND Internal Medicine
PROC: XW033E5 Introduction of Remdesivir Anti-infective into Peripheral Vein, Percutaneous Approach, New Technology Group 5 (ICD-10-PCS; principal; 2023-07-02)
PROC: 8E0ZXY6 Isolation (ICD-10-PCS; 2023-07-02)
DX: U07.1 COVID-19 (principal); E87.1 Hypo-osmolality and hyponatremia; J98.11 Atelectasis; F43.10 Post-traumatic stress disorder, unspecified; E86.0 Dehydration; I34.0 Nonrheumatic mitral (valve) insufficiency; I48.91 Unspecified atrial fibrillation; M19.90 Unspecified osteoarthritis, unspecified site; F41.9 Anxiety disorder, unspecified; I44.7 Left bundle-branch block, unspecified; R09.89 Other specified symptoms and signs involving the circulatory and respiratory systems; Z79.01 Long term (current) use of anticoagulants; Z79.899 Other long term (current) drug therapy; Z86.010 Personal history of colon polyps; Z98.890 Other specified postprocedural states
CPT/HCPCS: 36415; 71045; 71045-26; 80048; 80053; 83605; 83690; 83880; 85025; 87040; 87045; 87046; 87324; 87449; 87899; 93005; 93306; 97161-GP; 99285; A9270-GY; C9113; J0248; J0456; J0696; J1650; J2405; J3490; J7030; J7050

== ENCOUNTER 2024-01-08 16:38 | Observation (INO) | payer MEDICARE, OTHER ==
[2024-01-08 17:08] LABS: APPEARANCE,URINE CLEAR; BILIRUBIN,URINE NEGATIVE (NEGATIVE); COLOR,URINE YELLOW; GLUCOSE,URINE NEGATIVE (NEGATIVE); KETONES,URINE NEGATIVE (NEGATIVE); LEUKOCYTE ESTERASE,URINE NEGATIVE (NEGATIVE); NITRITE,URINE NEGATIVE (NEGATIVE); OCCULT BLOOD,URINE NEGATIVE (NEGATIVE); PROTEIN,URINE NEGATIVE (NEGATIVE); UROBILINOGEN,URINE 0.2 EU/dL (<2.0)
[2024-01-08 17:14] LABS: BASOPHILS ABSOLUTE AUTO 0.02 K/uL (0.00-0.20); BASOPHILS PERCENT AUTO 0.3 % (0.0-1.0); EOSINOPHILS ABSOLUTE AUTO 0.09 K/uL (0.00-0.45); EOSINOPHILS PERCENT AUTO 1.3 % (0.0-6.0); HEMATOCRIT 38.3 % (37.0-47.0); HEMOGLOBIN 12.8 g/dL (12.0-16.0); IMMATURE GRAN ABSOLUTE AUTO 0.02 K/uL (0.00-0.05); IMMATURE GRAN PERCENT AUTO 0.3 % (0.0-0.4); LYMPHOCYTES ABSOLUTE AUTO 2.36 K/uL (1.00-4.80); LYMPHOCYTES PERCENT AUTO 34.3 % (24.0-44.0); MEAN CORPUSCULAR HEMOGLOBIN 31.7 pg (28.0-32.0); MEAN CORPUSCULAR HGB CONC 33.4 g/dL (32.0-36.0); MEAN CORPUSCULAR VOLUME 94.8 fL (83.0-99.0); MEAN PLATELET VOLUME 8.9 fL (9.4-12.3); MONOCYTES ABSOLUTE AUTO 0.52 K/uL (0.00-0.80); MONOCYTES PERCENT AUTO 7.5 % (0.0-8.0); NEUTROPHILS ABSOLUTE AUTO 3.88 K/uL (1.80-7.70); NEUTROPHILS PERCENT AUTO 56.3 % (41.0-71.0); PLATELET COUNT,PLT 202 K/uL (150-400); RED BLOOD CELL COUNT 4.04 M/uL (4.10-5.30); WHITE BLOOD CELL COUNT,WBC 6.89 K/uL (3.9-11.3)
[2024-01-08 17:31] LABS: INR 0.99 (0.86-1.11); PTT,PARTIAL THROMBOPLSTIN TIME 26.6 SEC (23.9-30.7)
[2024-01-08] MEDS: Sodium Chloride 0.9% 1,000 ML IV ONE (17:31)
[2024-01-08 17:46] LABS: A/G RATIO 1.1 (0.9-1.6); ALBUMIN 3.9 g/dL (3.4-5.0); BILIRUBIN TOTAL 0.4 mg/dL (0.2-1.0); CALCIUM 9.1 mg/dL (8.5-10.1); CARBON DIOXIDE,CO2 26.5 mmol/L (21.0-32.0); CREATININE 0.9 mg/dL (0.6-1.0); EST CRCL DRUG DOSING (CG) 37.62 mL/min; MAGNESIUM 2.1 mg/dL (1.8-2.4); PROTEIN TOTAL,TP 7.3 g/dL (6.4-8.2); TSH ULTRASENSITIVE 4.03 uIU/mL (0.36-3.74)
[2024-01-08 18:04] LABS: T4 FREE 1.04 ng/dL (0.76-1.46)
[2024-01-08] MEDS: Iopamidol 755 MG/ML 500 ML Multipack Bottle IVPUSH STA (19:00)
[2024-01-08] MEDS ORDERED: Polyethylene Glycol 3350 Powder 17 GM Packet PO PRN (20:50)
[2024-01-08] MEDS ORDERED: Acetaminophen 650 MG Supp RECTAL PRN (20:50)
[2024-01-08] MEDS ORDERED: Albuterol/Ipratropium 3.0-0.5 MG/3 ML Neb Soln NEB PRN (20:50)
[2024-01-08] MEDS ORDERED: Ondansetron 4 MG/2 ML SDV IVPUSH PRN (20:50)
[2024-01-08] MEDS: Enoxaparin 40 MG/0.4 ML Syringe SUBCUT SCH (21:31)
[2024-01-08] MEDS: Apixaban 5 MG Tab PO SCH (21:31)
[2024-01-08 21:41] LABS: AMPHETAMINES SCREEN, URINE NEGATIVE (CUTOFF=500); BARBITURATE SCREEN,URINE NEGATIVE (CUTOFF=200); BENZODIAZEPINES SCREEN,URINE NEGATIVE (CUTOFF=150); BUPRENORPHINE SCREEN,URINE NEGATIVE (CUTOFF=10); METHADONE SCREEN, URINE NEGATIVE (CUTOFF=200); METHAMPHETAMINES SCREEN, URINE NEGATIVE (CUTOFF=500); OXYCODONE SCREEN,URINE NEGATIVE (CUT0FF=100); PCP SCREEN,URINE NEGATIVE (CUTOFF=25); THC SCREEN,URINE 20 NG/ML NEGATIVE (CUTOFF=50)
[2024-01-08] MEDS: Rivaroxaban 15 MG Tab PO SCH (21:55)
[2024-01-08] MEDS: atorvaSTATin 40 MG Tab PO SCH (22:40)
[2024-01-09 06:03] LABS: BASOPHILS ABSOLUTE AUTO 0.03 K/uL (0.00-0.20); BASOPHILS PERCENT AUTO 0.6 % (0.0-1.0); EOSINOPHILS ABSOLUTE AUTO 0.07 K/uL (0.00-0.45); EOSINOPHILS PERCENT AUTO 1.3 % (0.0-6.0); HEMATOCRIT 33.8 % (37.0-47.0); HEMOGLOBIN 11.6 g/dL (12.0-16.0); IMMATURE GRAN ABSOLUTE AUTO 0.02 K/uL (0.00-0.05); IMMATURE GRAN PERCENT AUTO 0.4 % (0.0-0.4); LYMPHOCYTES ABSOLUTE AUTO 2.08 K/uL (1.00-4.80); LYMPHOCYTES PERCENT AUTO 39.8 % (24.0-44.0); MEAN CORPUSCULAR HEMOGLOBIN 32.2 pg (28.0-32.0); MEAN CORPUSCULAR HGB CONC 34.3 g/dL (32.0-36.0); MEAN CORPUSCULAR VOLUME 93.9 fL (83.0-99.0); MEAN PLATELET VOLUME 9.4 fL (9.4-12.3); MONOCYTES PERCENT AUTO 7.7 % (0.0-8.0); NEUTROPHILS ABSOLUTE AUTO 2.62 K/uL (1.80-7.70); NEUTROPHILS PERCENT AUTO 50.2 % (41.0-71.0); PLATELET COUNT,PLT 167 K/uL (150-400); WHITE BLOOD CELL COUNT,WBC 5.22 K/uL (3.9-11.3)
[2024-01-09] MEDS: Lactated Ringers 1,000 ML IV SCH (07:34)
[2024-01-09 08:38] LABS: CALCIUM 8.6 mg/dL (8.5-10.1); CARBON DIOXIDE,CO2 22.6 mmol/L (21.0-32.0); CREATININE 0.8 mg/dL (0.6-1.0); EST CRCL DRUG DOSING (CG) 42.32 mL/min; MAGNESIUM 2.1 mg/dL (1.8-2.4); POTASSIUM,K 4.2 mmol/L (3.5-5.1)
[2024-01-09] MEDS: Lactated Ringers 1,000 ML IV ONE (11:06)
[2024-01-09] MEDS: Acetaminophen 325 MG Tab PO PRN (14:16)
[2024-01-10] MEDS: LORazepam 2 MG/ML SDV IVPUSH ONE (12:40)
[2024-01-10] MEDS: Gadobenate Dimeglumine 529 MG/ML 20 ML SDV IVPUSH STA (13:42)
[2024-01-10] MEDS: Rivaroxaban 15 MG Tab PO SCH (17:21)
[2024-01-10] MEDS: atorvaSTATin 40 MG Tab PO SCH (20:36)
[2024-01-11 06:20] LABS: HEMOGLOBIN A1C 5.8 %
[2024-01-11 06:32] LABS: CALCIUM 8.8 mg/dL (8.5-10.1); CARBON DIOXIDE,CO2 21.7 mmol/L (21.0-32.0); CREATININE 0.9 mg/dL (0.6-1.0); EST CRCL DRUG DOSING (CG) 37.62 mL/min; POTASSIUM,K 3.9 mmol/L (3.5-5.1)
[2024-01-11 09:53] VITALS: BP 118/75; PULSE 78
== END 2024-01-11 09:50 | disposition home or self-care (01) ==
LOC: MW.ED 16:38 → MW.MS 19:49
PROVIDERS: ADMIT Family Medicine; ATTEND Family Medicine
DX: R29.818 Other symptoms and signs involving the nervous system (principal); I63.9 Cerebral infarction, unspecified; F41.9 Anxiety disorder, unspecified; I48.91 Unspecified atrial fibrillation; R42 Dizziness and giddiness; R53.1 Weakness; Z79.899 Other long term (current) drug therapy; R41.0 Disorientation, unspecified
CPT/HCPCS: 36415; 70450; 70496; 70498; 70553; 80048; 80053; 80061; 80305; 81003; 82607; 83036; 83735; 84439; 84443; 84484; 85025; 85610; 85730; 93005; 93306; 96360; 97162; 99285; A9270; A9577; J2060; J7030; J7120; Q9967; 93010; 96361; 99222; 99232; 99239; 99284; G0378

== ENCOUNTER 2024-04-11 06:03 | Observation (INO) | payer MEDICARE, OTHER ==
[2024-04-11] MEDS: Sodium Chloride 0.9% 2.5 ML Syringe FLUSH PRN (06:22)
[2024-04-11] MEDS: Sodium Chloride 0.9% 10 ML Syringe FLUSH PRN (06:22)
[2024-04-11] MEDS: Sodium Chloride 0.9% 1,000 ML IV STA (06:41)
[2024-04-11 06:47] LABS: BASOPHILS ABSOLUTE AUTO 0.03 K/uL (0.00-0.20); BASOPHILS PERCENT AUTO 0.5 % (0.0-1.0); EOSINOPHILS ABSOLUTE AUTO 0.18 K/uL (0.00-0.45); EOSINOPHILS PERCENT AUTO 3.1 % (0.0-6.0); HEMATOCRIT 32.3 % (37.0-47.0); HEMOGLOBIN 11.1 g/dL (12.0-16.0); IMMATURE GRAN ABSOLUTE AUTO 0.02 K/uL (0.00-0.05); IMMATURE GRAN PERCENT AUTO 0.3 % (0.0-0.4); LYMPHOCYTES ABSOLUTE AUTO 2.56 K/uL (1.00-4.80); LYMPHOCYTES PERCENT AUTO 44.6 % (24.0-44.0); MEAN CORPUSCULAR HEMOGLOBIN 32.4 pg (28.0-32.0); MEAN CORPUSCULAR HGB CONC 34.4 g/dL (32.0-36.0); MEAN CORPUSCULAR VOLUME 94.2 fL (83.0-99.0); MEAN PLATELET VOLUME 9.6 fL (9.4-12.3); MONOCYTES ABSOLUTE AUTO 0.53 K/uL (0.00-0.80); MONOCYTES PERCENT AUTO 9.2 % (0.0-8.0); NEUTROPHILS ABSOLUTE AUTO 2.42 K/uL (1.80-7.70); NEUTROPHILS PERCENT AUTO 42.3 % (41.0-71.0); PLATELET COUNT,PLT 199 K/uL (150-400); RED BLOOD CELL COUNT 3.43 M/uL (4.10-5.30); WHITE BLOOD CELL COUNT,WBC 5.74 K/uL (3.9-11.3)
[2024-04-11 07:09] LABS: A/G RATIO 1.2 (0.9-1.6); ALBUMIN 3.3 g/dL (3.4-5.0); BILIRUBIN TOTAL 0.3 mg/dL (0.2-1.0); CARBON DIOXIDE,CO2 22.9 mmol/L (21.0-32.0); CREATININE 0.8 mg/dL (0.6-1.0); EST CRCL DRUG DOSING (CG) 40.29 mL/min; POTASSIUM,K 4.1 mmol/L (3.5-5.1); PROTEIN TOTAL,TP 6.1 g/dL (6.4-8.2)
[2024-04-11 07:15] LABS: APPEARANCE,URINE CLEAR; BILIRUBIN,URINE NEGATIVE (NEGATIVE); COLOR,URINE YELLOW; GLUCOSE,URINE NEGATIVE (NEGATIVE); KETONES,URINE NEGATIVE (NEGATIVE); LEUKOCYTE ESTERASE,URINE NEGATIVE (NEGATIVE); NITRITE,URINE NEGATIVE (NEGATIVE); OCCULT BLOOD,URINE NEGATIVE (NEGATIVE); PH,URINE 5.5 (5.0-8.0); PROTEIN,URINE NEGATIVE (NEGATIVE); UROBILINOGEN,URINE 0.2 EU/dL (<2.0)
[2024-04-11] MEDS ORDERED: Sodium Chloride 0.9% 1,000 ML IV SCH (08:45)
[2024-04-11 10:43] LABS: CORONAVIRUS COVID-19 NAA NEGATIVE (NEGATIVE); INFLUENZA A NAA NEGATIVE (NEGATIVE); INFLUENZA B NAA NEGATIVE (NEGATIVE); RESPIRATORY SYNCYTIAL VIR NAA NEGATIVE (NEGATIVE)
[2024-04-11] MEDS ORDERED: Sodium Chloride 0.9% 2.5 ML Syringe FLUSH PRN (13:28)
[2024-04-11] MEDS ORDERED: Ondansetron 4 MG/2 ML SDV IVPUSH PRN (13:28)
[2024-04-11] MEDS ORDERED: Sodium Chloride 0.9% 10 ML Syringe FLUSH PRN (13:28)
[2024-04-11] MEDS ORDERED: ClonazePAM 1 MG Tab PO PRN (13:29)
[2024-04-11 14:39] LABS: CALCIUM 8.2 mg/dL (8.5-10.1); CARBON DIOXIDE,CO2 21.6 mmol/L (21.0-32.0); CREATININE 0.7 mg/dL (0.6-1.0); EST CRCL DRUG DOSING (CG) 46.04 mL/min; POTASSIUM,K 4.1 mmol/L (3.5-5.1)
[2024-04-11] MEDS: Rivaroxaban 15 MG Tab PO SCH (17:49)
[2024-04-11] MEDS: Acetaminophen 325 MG Tab PO PRN (17:58)
[2024-04-11] MEDS: atorvaSTATin 40 MG Tab PO SCH (20:44)
[2024-04-12 06:15] LABS: BASOPHILS ABSOLUTE AUTO 0.04 K/uL (0.00-0.20); BASOPHILS PERCENT AUTO 0.8 % (0.0-1.0); EOSINOPHILS ABSOLUTE AUTO 0.13 K/uL (0.00-0.45); EOSINOPHILS PERCENT AUTO 2.5 % (0.0-6.0); HEMATOCRIT 34.3 % (37.0-47.0); HEMOGLOBIN 11.6 g/dL (12.0-16.0); IMMATURE GRAN ABSOLUTE AUTO 0.02 K/uL (0.00-0.05); IMMATURE GRAN PERCENT AUTO 0.4 % (0.0-0.4); LYMPHOCYTES ABSOLUTE AUTO 2.26 K/uL (1.00-4.80); LYMPHOCYTES PERCENT AUTO 43.4 % (24.0-44.0); MEAN CORPUSCULAR HEMOGLOBIN 31.6 pg (28.0-32.0); MEAN CORPUSCULAR HGB CONC 33.8 g/dL (32.0-36.0); MEAN CORPUSCULAR VOLUME 93.5 fL (83.0-99.0); MEAN PLATELET VOLUME 9.8 fL (9.4-12.3); MONOCYTES ABSOLUTE AUTO 0.44 K/uL (0.00-0.80); MONOCYTES PERCENT AUTO 8.4 % (0.0-8.0); NEUTROPHILS ABSOLUTE AUTO 2.32 K/uL (1.80-7.70); NEUTROPHILS PERCENT AUTO 44.5 % (41.0-71.0); PLATELET COUNT,PLT 216 K/uL (150-400); RED BLOOD CELL COUNT 3.67 M/uL (4.10-5.30); WHITE BLOOD CELL COUNT,WBC 5.21 K/uL (3.9-11.3)
[2024-04-12 06:32] LABS: CALCIUM 8.7 mg/dL (8.5-10.1); CARBON DIOXIDE,CO2 21.8 mmol/L (21.0-32.0); CREATININE 0.9 mg/dL (0.6-1.0); EST CRCL DRUG DOSING (CG) 35.81 mL/min; POTASSIUM,K 4.2 mmol/L (3.5-5.1)
[2024-04-12 12:24] VITALS: BP 131/60; PULSE 56
== END 2024-04-12 12:46 | disposition home or self-care (01) ==
LOC: MW.ED 06:03 → MW.MS 11:04
PROVIDERS: ADMIT Internal Medicine; ATTEND Internal Medicine
DX: E87.1 Hypo-osmolality and hyponatremia (principal); R11.2 Nausea with vomiting, unspecified; R19.7 Diarrhea, unspecified; I48.20 Chronic atrial fibrillation, unspecified; F41.9 Anxiety disorder, unspecified; Z86.73 Personal history of transient ischemic attack (TIA), and cerebral infarction without residual deficits; Z95.818 Presence of other cardiac implants and grafts; Z20.822 Contact with and (suspected) exposure to COVID-19; Z79.899 Other long term (current) drug therapy
CPT/HCPCS: 0241U; 36415; 71045; 80048; 80053; 81003; 82550; 83605; 84484; 85025; 87040; 93005; A9270; G0378; J3490; J7030

== ENCOUNTER 2024-04-18 12:07 | Emergency (ER) | payer MEDICARE, OTHER ==
[2024-04-18] MEDS: Sodium Chloride 0.9% 1,000 ML IV ONE (13:38)
[2024-04-18 13:47] LABS: BASOPHILS ABSOLUTE AUTO 0.03 K/uL (0.00-0.20); BASOPHILS PERCENT AUTO 0.6 % (0.0-1.0); EOSINOPHILS ABSOLUTE AUTO 0.08 K/uL (0.00-0.45); EOSINOPHILS PERCENT AUTO 1.5 % (0.0-6.0); HEMATOCRIT 32.8 % (37.0-47.0); HEMOGLOBIN 11.1 g/dL (12.0-16.0); IMMATURE GRAN ABSOLUTE AUTO 0.03 K/uL (0.00-0.05); IMMATURE GRAN PERCENT AUTO 0.6 % (0.0-0.4); LYMPHOCYTES ABSOLUTE AUTO 1.27 K/uL (1.00-4.80); LYMPHOCYTES PERCENT AUTO 23.7 % (24.0-44.0); MEAN CORPUSCULAR HEMOGLOBIN 31.8 pg (28.0-32.0); MEAN CORPUSCULAR HGB CONC 33.8 g/dL (32.0-36.0); MEAN PLATELET VOLUME 9.7 fL (9.4-12.3); MONOCYTES ABSOLUTE AUTO 0.36 K/uL (0.00-0.80); MONOCYTES PERCENT AUTO 6.7 % (0.0-8.0); NEUTROPHILS ABSOLUTE AUTO 3.58 K/uL (1.80-7.70); NEUTROPHILS PERCENT AUTO 66.9 % (41.0-71.0); PLATELET COUNT,PLT 183 K/uL (150-400); RED BLOOD CELL COUNT 3.49 M/uL (4.10-5.30); WHITE BLOOD CELL COUNT,WBC 5.35 K/uL (3.9-11.3)
[2024-04-18 14:18] LABS: A/G RATIO 1.2 (0.9-1.6); ALBUMIN 3.3 g/dL (3.4-5.0); BILIRUBIN TOTAL 0.4 mg/dL (0.2-1.0); CALCIUM 8.7 mg/dL (8.5-10.1); CARBON DIOXIDE,CO2 21.8 mmol/L (21.0-32.0); CREATININE 0.7 mg/dL (0.6-1.0); EST CRCL DRUG DOSING (CG) 46.04 mL/min; MAGNESIUM 1.8 mg/dL (1.8-2.4); PROTEIN TOTAL,TP 6.1 g/dL (6.4-8.2)
[2024-04-18 15:52] LABS: APPEARANCE,URINE CLEAR; BILIRUBIN,URINE NEGATIVE (NEGATIVE); COLOR,URINE YELLOW; GLUCOSE,URINE NEGATIVE (NEGATIVE); KETONES,URINE TRACE mg/dL (NEGATIVE); LEUKOCYTE ESTERASE,URINE NEGATIVE (NEGATIVE); NITRITE,URINE NEGATIVE (NEGATIVE); OCCULT BLOOD,URINE NEGATIVE (NEGATIVE); PROTEIN,URINE NEGATIVE (NEGATIVE); UROBILINOGEN,URINE 0.2 EU/dL (<2.0)
[2024-04-18 16:15] VITALS: BP 146/63; PULSE 58
== END 2024-04-18 16:26 | disposition home or self-care (01) ==
LOC: MW.ED 12:07
DX: R19.7 Diarrhea, unspecified (principal); I48.91 Unspecified atrial fibrillation; Z75.8 Other problems related to medical facilities and other health care; Z79.01 Long term (current) use of anticoagulants
CPT/HCPCS: 36415; 80053; 81003; 83690; 83735; 84484; 85025; 93005; 96360; 99285; J7030

== ENCOUNTER 2025-02-15 14:59 | Emergency (ER) | payer MEDICARE, OTHER ==
[2025-02-15 16:26] VITALS: BP 121/56; PULSE 66
== END 2025-02-15 16:26 | disposition home or self-care (01) ==
LOC: MW.ED 14:59
DX: S67.193A Crushing injury of left middle finger, initial encounter (principal); Z79.82 Long term (current) use of aspirin; Z75.8 Other problems related to medical facilities and other health care; W23.0XXA Caught, crushed, jammed, or pinched between moving objects, initial encounter
CPT/HCPCS: 73130-26-LT; 73130-LT; 99283

== ENCOUNTER 2025-03-02 12:56 | Emergency (ER) | payer MEDICARE, OTHER ==
[2025-03-02] MEDS ORDERED: Sodium Chloride 0.9% 10 ML Syringe FLUSH PRN (13:18)
[2025-03-02] MEDS ORDERED: Sodium Chloride 0.9% 2.5 ML Syringe FLUSH PRN (13:18)
[2025-03-02 13:23] LABS: BASOPHILS ABSOLUTE AUTO 0.02 K/uL (0.00-0.20); BASOPHILS PERCENT AUTO 0.2 % (0.0-1.0); EOSINOPHILS ABSOLUTE AUTO 0.12 K/uL (0.00-0.45); EOSINOPHILS PERCENT AUTO 1.4 % (0.0-6.0); HEMATOCRIT 32.1 % (37.0-47.0); HEMOGLOBIN 11.4 g/dL (12.0-16.0); IMMATURE GRAN ABSOLUTE AUTO 0.05 K/uL (0.00-0.05); IMMATURE GRAN PERCENT AUTO 0.6 % (0.0-0.4); LYMPHOCYTES ABSOLUTE AUTO 1.23 K/uL (1.00-4.80); LYMPHOCYTES PERCENT AUTO 14.3 % (24.0-44.0); MEAN CORPUSCULAR HEMOGLOBIN 32.3 pg (28.0-32.0); MEAN CORPUSCULAR HGB CONC 35.5 g/dL (32.0-36.0); MEAN CORPUSCULAR VOLUME 90.9 fL (83.0-99.0); MONOCYTES ABSOLUTE AUTO 0.71 K/uL (0.00-0.80); MONOCYTES PERCENT AUTO 8.2 % (0.0-8.0); NEUTROPHILS PERCENT AUTO 75.3 % (41.0-71.0); PLATELET COUNT,PLT 254 K/uL (150-400); RED BLOOD CELL COUNT 3.53 M/uL (4.10-5.30); WHITE BLOOD CELL COUNT,WBC 8.63 K/uL (3.9-11.3)
[2025-03-02] MEDS: Lactated Ringers 500 ML IV SCH (13:46)
[2025-03-02 13:52] LABS: INR 0.98 (0.86-1.11)
[2025-03-02 14:01] LABS: A/G RATIO 0.8 (0.9-1.6); ALBUMIN 2.9 g/dL (3.4-5.0); BILIRUBIN TOTAL 0.5 mg/dL (0.2-1.0); CARBON DIOXIDE,CO2 24.2 mmol/L (21.0-32.0); CREATININE 0.9 mg/dL (0.6-1.0); EST CRCL DRUG DOSING (CG) 35.21 mL/min; MAGNESIUM 1.8 mg/dL (1.8-2.4); POTASSIUM,K 3.9 mmol/L (3.5-5.1); PROTEIN TOTAL,TP 6.5 g/dL (6.4-8.2); TSH ULTRASENSITIVE 2.59 uIU/mL (0.36-3.74)
[2025-03-02] MEDS: Furosemide 40 MG/4 ML VIAL IVPUSH ONE (14:49)
[2025-03-02 15:27] VITALS: PULSE 86
[2025-03-02 16:05] VITALS: BP 114/80
== END 2025-03-02 16:05 | disposition home or self-care (01) ==
LOC: MW.ED 12:56
DX: I50.9 Heart failure, unspecified (principal); Z75.3 Unavailability and inaccessibility of health-care facilities
CPT/HCPCS: 36415; 71045; 80053; 83735; 83880; 84443; 84484; 85025; 85610; 93005; 96361; 96374; 99285; J1938; J7120; 93010; 99283